=== PATIENT | female | born 1955 | race Caucasian/White ===

== ENCOUNTER 2016-10-21 19:23 | Inpatient (IN) | payer BC ==
[~2016-10-21] VITALS: Ht 157.5 cm; Wt 94.0 kg
[2016-10-21 20:14] LABS: HEMATOCRIT 41.2 % (36.0-46.0); MCHC 33.3 G/DL (30.0-36.0); MCV 90.4 FL (83-99); MEAN PLAT.VOLUME 9.2 uM^3 (9.5-12.4); PLATELET COUNT 268 K/uL (156-360); RBC DIS.WIDTH-CV 12.3 % (11.8-14.6); RBC DIS.WIDTH-SD 40.2 % (39-53); RED BLOOD COUNT 4.56 M/uL (3.80-5.20); WHITE BLOOD COUNT 17.3 K/uL (4.1-10.2)
[2016-10-21 20:20] LABS: CHLORIDE 102 mEq/L (99-109); POTASSIUM 3.3 mEq/L (3.7-5.4); SODIUM 139 mEq/L (136-147)
[2016-10-21 20:22] LABS: GLUCOSE 164 mg/dL (70-99)
[2016-10-21 20:23] LABS: ANION GAP 14 MEQ/L (2-14)
[2016-10-21 20:24] LABS: TOTAL BILIRUBIN 0.5 mg/dL (0.0-1.0)
[2016-10-21 20:26] LABS: ALKALINE PHOSPHATASE 49 IU/L (3-129); GFR ESTIMATE (CALCULATED) > 59 mL/min/
[2016-10-21 20:27] LABS: UREA NITROGEN (BUN) 22 mg/dL (9-23)
[2016-10-21 20:36] LABS: TROP-I INTERPRETATION NEGATIVE; TROPONIN-I 0.05 ng/mL (0.0-0.30)
[2016-10-21 21:53] LABS: ADD MIUA? YES; BILIRUBIN NEGATIVE; BLOOD NEGATIVE; COLOR YELLOW ((YELLOW)); GLUCOSE (STRIP) 250; KETONES 40; LEUKOCYTES NEGATIVE; NITRITE NEGATIVE; PH, URINE 7.5 (5-8); PROTEIN (STRIP) TRACE; SPECIFIC GRAVITY 1.019 (1.000-1.030); UROBILINOGEN 0.2 MG/DL (0.2-1.0)
[2016-10-21 22:57] LABS: BACTERIA 1+; CASTS NONE SEEN /LPF; CRYSTALS NONE SEEN; EPITHELIAL CELLS 1+; MUCUS NONE SEEN; RED BLOOD CELLS 0-5 /HPF (0-5); UCUL ADDED? NO; WHITE BLOOD CELLS 0-5 /HPF (0-5)
[2016-10-21] MEDS ORDERED: NORVASC10 MG PO (23:16)
[2016-10-21] MEDS ORDERED: HYDRALAZINE HCL50 MG PO (23:16)
[2016-10-21] MEDS ORDERED: PRAVASTATIN SOD40 MG PO (23:17)
[2016-10-21] MEDS ORDERED: CLONIDINE HCL0.1 MG PO (23:17)
[2016-10-21] MEDS ORDERED: LISINOPRIL20 MG PO (23:17)
[2016-10-21] MEDS ORDERED: HYDROCHLOROTHIA25 MG PO (23:17)
[2016-10-22 04:18] LABS: EOSINOPHIL (%) 0.1 % (0-5); HEMATOCRIT 41.2 % (36.0-46.0); IMMATURE GRANULOCYTE (%) 0.1 % (0.0-0.7); IMMATURE GRANULOCYTE COUNT 0.2 K/uL; LYMPHOCYTE COUNT 1.5 K/uL (1.0-2.8); MCH 30.1 PG (29.0-34.0); MCHC 33.5 G/DL (30.0-36.0); MEAN PLAT.VOLUME 9.3 uM^3 (9.5-12.4); MONOCYTE (%) 7.4 % (3-12); MONOCYTE COUNT 1.1 K/uL (0-0.8); NEUTROPHIL (%) 81.9 % (45-76); NEUTROPHIL COUNT 11.6 K/uL (1.8-6.4); PLATELET COUNT 279 K/uL (156-360); RBC DIS.WIDTH-CV 12.3 % (11.8-14.6); RBC DIS.WIDTH-SD 39.8 % (39-53); RED BLOOD COUNT 4.58 M/uL (3.80-5.20); WHITE BLOOD COUNT 14.1 K/uL (4.1-10.2)
[2016-10-22 04:27] LABS: CHLORIDE 101 mEq/L (99-109); POTASSIUM 3.5 mEq/L (3.7-5.4); SODIUM 139 mEq/L (136-147)
[2016-10-22 04:29] LABS: GLUCOSE 140 mg/dL (70-99)
[2016-10-22 04:31] LABS: ANION GAP 11 MEQ/L (2-14)
[2016-10-22 04:33] LABS: GFR ESTIMATE (CALCULATED) > 59 mL/min/
[2016-10-22 04:34] LABS: UREA NITROGEN (BUN) 19 mg/dL (9-23)
[2016-10-22 04:40] LABS: TROP-I INTERPRETATION NEGATIVE; TROPONIN-I 0.16 ng/mL (0.0-0.30)
[2016-10-22 11:32] LABS: TROP-I INTERPRETATION NEGATIVE; TROPONIN-I 0.15 ng/mL (0.0-0.30)
[2016-10-22 17:08] VITALS: BP 138/69
[2016-10-22 19:38] VITALS: BP 136/73
[2016-10-22 23:27] VITALS: BP 132/67
[2016-10-23 03:56] VITALS: BP 140/69
[2016-10-23 07:46] VITALS: BP 136/69
[2016-10-23 09:38] LABS: MCH 29.7 PG (29.0-34.0); MCHC 31.8 G/DL (30.0-36.0); MCV 93.4 FL (83-99); MEAN PLAT.VOLUME 9.7 uM^3 (9.5-12.4); PLATELET COUNT 234 K/uL (156-360); RBC DIS.WIDTH-CV 13.2 % (11.8-14.6); RBC DIS.WIDTH-SD 45.2 % (39-53); RED BLOOD COUNT 4.07 M/uL (3.80-5.20); WHITE BLOOD COUNT 8.7 K/uL (4.1-10.2)
[2016-10-23 10:05] LABS: ANION GAP 8 MEQ/L (2-14); CHLORIDE 102 MEQ/L (99-109); GFR ESTIMATE (CALCULATED) > 59 mL/min/; GLUCOSE 136 mg/dL (70-99); POTASSIUM 3.8 MEQ/L (3.7-5.4); SAMPLE HEMOLYSIS CHECK 1; SAMPLE ICTERIC CHECK 0; SAMPLE LIPEMIA CHECK 0; SODIUM 134 MEQ/L (136-147); UREA NITROGEN (BUN) 15 mg/dL (9-23)
[2016-10-23 11:30] VITALS: BP 130/72
[2016-10-23 16:06] VITALS: BP 162/82
[2016-10-23 19:27] VITALS: BP 162/84
[2016-10-23 23:30] VITALS: BP 130/62
[2016-10-24 04:06] VITALS: BP 140/70
[2016-10-24 08:23] VITALS: BP 120/72
[2016-10-24 12:04] VITALS: BP 107/57
[2016-10-24 16:30] VITALS: BP 125/63
[2016-10-24 20:24] VITALS: BP 157/71
[2016-10-25] VITALS (7 sets, daily range): BP systolic 115–141; BP diastolic 56–67
[2016-10-25 06:52] LABS: HEMATOCRIT 35.8 % (36.0-46.0); MCH 29.7 PG (29.0-34.0); MCHC 31.6 G/DL (30.0-36.0); MCV 94.2 FL (83-99); MEAN PLAT.VOLUME 9.6 uM^3 (9.5-12.4); PLATELET COUNT 257 K/uL (156-360); RBC DIS.WIDTH-CV 13.3 % (11.8-14.6); RBC DIS.WIDTH-SD 45.6 % (39-53)
[2016-10-25 07:21] LABS: ANION GAP 8 MEQ/L (2-14); CHLORIDE 102 MEQ/L (99-109); GFR ESTIMATE (CALCULATED) 48 mL/min/; POTASSIUM 3.9 MEQ/L (3.7-5.4); SAMPLE HEMOLYSIS CHECK 0; SAMPLE ICTERIC CHECK 0; SAMPLE LIPEMIA CHECK 0; SODIUM 137 MEQ/L (136-147); UREA NITROGEN (BUN) 16 mg/dL (9-23)
[2016-10-25 07:24] LABS: GLUCOSE 101 mg/dL (70-99)
[2016-10-26 00:15] VITALS: BP 115/58
[2016-10-26 03:05] VITALS: BP 150/75
[2016-10-26 07:36] VITALS: BP 133/70
[2016-10-26 16:14] VITALS: BP 130/80
[2016-10-26 20:00] VITALS: BP 144/72
[2016-10-26 23:48] VITALS: BP 130/84
[2016-10-27 04:05] VITALS: BP 148/72
[2016-10-27 06:13] LABS: HEMATOCRIT 35.6 % (36.0-46.0); MCH 30.3 PG (29.0-34.0); MCV 94.7 FL (83-99); MEAN PLAT.VOLUME 9.7 uM^3 (9.5-12.4); PLATELET COUNT 257 K/uL (156-360); RBC DIS.WIDTH-CV 13.1 % (11.8-14.6); RBC DIS.WIDTH-SD 45.4 % (39-53); RED BLOOD COUNT 3.76 M/uL (3.80-5.20); WHITE BLOOD COUNT 6.9 K/uL (4.1-10.2)
[2016-10-27 06:40] LABS: ANION GAP 7 MEQ/L (2-14); CHLORIDE 101 MEQ/L (99-109); GFR ESTIMATE (CALCULATED) > 59 mL/min/; GLUCOSE 108 mg/dL (70-99); POTASSIUM 3.5 MEQ/L (3.7-5.4); SAMPLE HEMOLYSIS CHECK 0; SAMPLE ICTERIC CHECK 0; SAMPLE LIPEMIA CHECK 0; SODIUM 140 MEQ/L (136-147); UREA NITROGEN (BUN) 19 mg/dL (9-23)
[2016-10-27 08:25] VITALS: BP 134/76
[2016-10-27] MEDS ORDERED: MILK OF MAGNESI10 ML PO ×2 (13:56→13:57)
[2016-10-27] MEDS ORDERED: APRESOLINE50 MG PO (13:56)
[2016-10-27] MEDS ORDERED: ZITHROMAX250 MG PO (14:10)
[2016-10-27] MEDS ORDERED: LO-DOSE ASPIRIN81 M2 PO (14:16)
[2016-10-27 19:46] VITALS: BP 155/74
[2016-10-28 00:03] VITALS: BP 131/74
[2016-10-28 03:18] VITALS: BP 134/63
[2016-10-28 08:25] VITALS: BP 129/64
== END 2016-10-28 14:24 | DRG 562 ==
LOC: EXP 19:23 → EME 19:23 → EDOF 10-22 02:08 → 3EAST 10-22 14:13 → EDOF 10-22 14:13 → 3EAST 10-22 16:43
PROVIDERS: Hospitalist; Internal Medicine; Physician Assistant
DX: S52.509A Unspecified fracture of the lower end of unspecified radius, initial encounter for closed fracture (principal); J18.9 Pneumonia, unspecified organism; F33.9 Major depressive disorder, recurrent, unspecified; I69.351 Hemiplegia and hemiparesis following cerebral infarction affecting right dominant side; E87.6 Hypokalemia; Y92.002 Bathroom of unspecified non-institutional (private) residence as the place of occurrence of the external cause; E78.5 Hyperlipidemia, unspecified; J45.909 Unspecified asthma, uncomplicated; F32.9 Major depressive disorder, single episode, unspecified; I10 Essential (primary) hypertension; I95.1 Orthostatic hypotension; R55 Syncope and collapse; D72.829 Elevated white blood cell count, unspecified; G89.29 Other chronic pain; M54.9 Dorsalgia, unspecified; R00.0 Tachycardia, unspecified; Z88.6 Allergy status to analgesic agent; E66.9 Obesity, unspecified; Z68.37 Body mass index [BMI] 37.0-37.9, adult
CPT/HCPCS: 70450; 71275; 72100; 73110; 80048; 80053; 81003; 84443; 84484; 85025; 85027; 87040; 93005; 93306; 93970; 95819; 97530 GP; 99281; 99285; J0456; J0696; J1644; J2270; J2405; J7050